=== PATIENT | male | born 1940 | race Caucasian/White ===

== ENCOUNTER 2019-02-10 07:58 | Inpatient (IN) | payer MEDICARE, OTHER ==
[~2019-02-10] VITALS: Ht 167.6 cm; Wt 92.7 kg
[2019-02-10] VITALS (18 sets, daily range): BP systolic 106–181; BP diastolic 61–94; PULSE 50–92; RESP 9–27; Ht 167.6 cm; Wt 92.7 kg
[~2019-02-10 07:58] MED LIST: ALLO300T2 PO; ATOR10TA65 PO; LACTATED RINGER'S 1,000 ML IV SCH; LYRI200 PO
[2019-02-10] MEDS ORDERED: ROPIVACAINE 0.2% 20 ML VIAL ONE (09:51)
[2019-02-10] MEDS ORDERED: FENTAnyl 50 MCG/ML VIAL ONE (09:52)
[2019-02-10] MEDS ORDERED: DEXAMETHASONE 1 MG TAB PO ONE (10:30)
[2019-02-10] MEDS ORDERED: BUPIVACAINE 0.5% (SDV) 30 ML, morphine SULFATE (PF) 8 MG, EPINEPHrine 0.3 MG, KETOROLAC... IRR SCH ×7 (10:30)
[2019-02-10] MEDS ORDERED: CEFAZOLIN 2 GM/50 ML (PMX) 50 ML IVPB ONE (10:30)
[2019-02-10] MEDS ORDERED: TRANEXAMIC ACID 1GM/100ML(PMX) 100 ML IVPB ONE ×2 (10:30→13:30)
[2019-02-10] MEDS ORDERED: GABAPENTIN 300 MG CAP PO ONE (10:30)
[2019-02-10] MEDS ORDERED: PROPOFOL 20 ML ONE (11:08)
[2019-02-10] MEDS ORDERED: CEFAZOLIN 1 GM INJ ONE (11:08)
[2019-02-10] MEDS ORDERED: TRANEXAMIC ACID 1GM/100ML(PMX) 100 ML ONE (11:08)
[2019-02-10] MEDS ORDERED: HYDROCORTISONE 100 MG INJ ONE (11:10)
[2019-02-10] MEDS ORDERED: METOCLOPRAMIDE 10 MG INJ ONE (11:10)
[2019-02-10] MEDS ORDERED: THROMBIN 5000 UNIT (RECOTHROM) VIAL ONE (11:29)
[2019-02-10] MEDS ORDERED: CA CHLORIDE (GM) 10% 10 ML INJ ONE (11:30)
[2019-02-10] MEDS ORDERED: POLYMYXIN/BACITRACIN 1L IRRIG ONE (11:30)
[2019-02-10] MEDS ORDERED: ONDANSETRON 4 MG INJ IV PRN ×2 (12:00→13:30)
[2019-02-10] MEDS ORDERED: LABETALOL HCL 20MG INJ IV PRN (12:00)
[2019-02-10] MEDS ORDERED: FENTAnyl 50 MCG/ML VIAL IV PRN ×3 (12:00)
[2019-02-10] MEDS ORDERED: MEPERIDINE 25 MG INJ IV PRN (12:00)
[2019-02-10] MEDS ORDERED: hydrALAzine 20 MG INJ IV PRN (12:00)
[2019-02-10] MEDS ORDERED: HYDROmorphONE 1 MG/5 ML IV SYRINGE IV PRN ×3 (12:00)
[2019-02-10] MEDS ORDERED: DIPHENHYDRAMINE 50 MG INJ IV PRN ×2 (12:00→13:30)
[2019-02-10] MEDS ORDERED: HYDROmorphONE 1 MG/ML SYG IV PRN (13:30)
[2019-02-10] MEDS ORDERED: KETOROLAC 15 MG INJ IV PRN (13:30)
[2019-02-10] MEDS ORDERED: LOPERAMIDE 2 MG CAP PO PRN (13:30)
[2019-02-10] MEDS ORDERED: ZOLPIDEM 5 MG TAB PO PRN (13:30)
[2019-02-10] MEDS ORDERED: oxyCODONE 5 MG TAB PO PRN ×2 (13:30)
[2019-02-10] MEDS ORDERED: MAGNESIUM HYDROXIDE 30ML CUP PO PRN (13:30)
[2019-02-10] MEDS ORDERED: NACL 0.9% 3 ML SYG IV SCH (13:30)
[2019-02-10] MEDS: CEFAZOLIN 1 GM/50 ML (PMX) 50 ML IVPB SCH ×2 (15:56→21:49)
[2019-02-10] MEDS: DEXAMETHASONE 2 MG TAB PO SCH (18:42)
[2019-02-10] MEDS: ACETAMINOPHEN 500 MG TAB PO SCH (18:42)
[2019-02-10] MEDS ORDERED: PREGABALIN 100 MG CAP PO SCH (21:00)
[2019-02-10] MEDS ORDERED: GABAPENTIN 300 MG CAP PO SCH (21:00)
[2019-02-10] MEDS ORDERED: ATORVASTATIN 10 MG TAB PO SCH (21:00)
[2019-02-10] MEDS: SENNA/DOCUSATE NA (8.6MG/50MG) TAB PO SCH (21:48)
[2019-02-10] MEDS: oxyCODONE 5 MG TAB PO PRN (21:48)
[2019-02-11] VITALS: BP 124/60; PULSE 52; RESP 20
[2019-02-11] MEDS: ACETAMINOPHEN 500 MG TAB PO SCH ×2 (00:13→06:15)
[2019-02-11] MEDS: DEXAMETHASONE 2 MG TAB PO SCH ×3 (00:13→11:24)
[2019-02-11] MEDS: CEFAZOLIN 1 GM/50 ML (PMX) 50 ML IVPB SCH (06:15)
[2019-02-11] MEDS: oxyCODONE 5 MG TAB PO PRN (06:20)
[2019-02-11 08:11] VITALS: BP 104/55; PULSE 66; RESP 18
[2019-02-11] MEDS ORDERED: ALLOPURINOL 300 MG TAB PO SCH (09:00)
[2019-02-11] MEDS: SENNA/DOCUSATE NA (8.6MG/50MG) TAB PO SCH (09:18)
== END 2019-02-11 11:39 | disposition home or self-care (01) | DRG 483 ==
LOC: SDS 07:58 → REC 13:10 → MS1 20:38
PROVIDERS: ADMIT Orthopaedic Surgery; ATTEND Orthopaedic Surgery
PROC: 0PB90ZZ Excision of Right Clavicle, Open Approach (ICD-10-PCS; 2019-02-10)
PROC: 0RRJ00Z Replacement of Right Shoulder Joint with Reverse Ball and Socket Synthetic Substitute, Open Approach (ICD-10-PCS; principal; 2019-02-10 12:00)
DX: M19.011 Primary osteoarthritis, right shoulder (principal); E11.9 Type 2 diabetes mellitus without complications; N18.3 Chronic kidney disease, stage 3 (moderate); E78.5 Hyperlipidemia, unspecified; K21.9 Gastro-esophageal reflux disease without esophagitis; E66.9 Obesity, unspecified; M10.9 Gout, unspecified; Z96.653 Presence of artificial knee joint, bilateral; Z68.33 Body mass index [BMI] 33.0-33.9, adult; Z98.1 Arthrodesis status
CPT/HCPCS: 71045; 86999; 88304; 88311; 97161; C1776; J0171; J0360; J0690; J0735; J1170; J1720; J1885; J2274; J2405; J2765; J2795; J3010; J3370

== ENCOUNTER 2019-02-13 12:35 | Emergency (ER) | payer MEDICARE, OTHER ==
[~2019-02-13] VITALS: Ht 165.1 cm; Wt 90.0 kg
[~2019-02-13 12:35] MED LIST changes: -LACTATED RINGER'S 1,000 ML IV SCH
[2019-02-13 12:43] VITALS: Ht 165.1 cm; Wt 90.0 kg
[2019-02-13] MEDS ORDERED: HYDROCODONE/APAP (5/325) TAB PO ONE (15:00)
[2019-02-13 16:04] VITALS: BP 111/69; PULSE 56; RESP 18
== END 2019-02-13 16:06 | disposition home or self-care (01) ==
LOC: E/R 12:35
DX: R60.9 Edema, unspecified (principal); Z85.46 Personal history of malignant neoplasm of prostate; Z96.611 Presence of right artificial shoulder joint
CPT/HCPCS: 93971